=== PATIENT | female | born 1960 | race Caucasian/White ===

== ENCOUNTER 2017-05-08 18:48 | Emergency (ER) | payer SELFPAY ==
[~2017-05-08 18:48] MED LIST: ACYCLOVIR400 MG PO; ATIVAN0.5 M1; HYDROXYZINE PAM50 MG PO; PRE20 PO; PROZAC20 MG PO; RISPERDAL2 MG PO
[2017-05-09 02:15] LABS: BASOPHIL % 0.7 % (0-2); PLATELET COUNT 169 x10^3mcL (130-400); RED CELL DISTRIBUTION WIDTH 13.8 % (11.5-14.5)
[2017-05-09 02:20] LABS: ALKALINE PHOSPHATASE 86 U/L (46-116); ALT/SGPT 169 U/L (14-59); AST/SGOT 100 U/L (15-37); BILIRUBIN TOTAL 0.31 mg/dL (0.20-1.00); CALCIUM 7.6 mg/dL (8.5-10.1); CARBON DIOXIDE 26.8 mmol/L (21-32); CHLORIDE SERUM 111 mmol/L (98-107); CREATININE SERUM 0.8 mg/dL (0.6-1.0); GFR1 > 60 mL/min; GLUCOSE SERUM 148 mg/dL (74-106); SODIUM SERUM 147 mmol/L (136-145); TOTAL PROTEIN, SERUM 6.3 g/dL (6.4-8.2)
[2017-05-09 02:25] LABS: ALBUMIN 2.9 g/dL (3.4-5.0); POTASSIUM SERUM 2.6 mmol/L (3.5-5.1)
[2017-05-09 05:22] VITALS: BP 133/85
== END 2017-05-09 05:22 | disposition home or self-care (01) ==
LOC: ED 18:48
PROVIDERS: Emergency Medicine
DX: F10.129 Alcohol abuse with intoxication, unspecified (principal); I10 Essential (primary) hypertension; F31.9 Bipolar disorder, unspecified; R27.0 Ataxia, unspecified
CPT/HCPCS: G0480; J2405; J3490; J7030